=== PATIENT | female | born 1950 | race Caucasian/White ===

== ENCOUNTER 2019-04-21 17:09 | Emergency (ER) | payer OTHER ==
[2019-04-21 17:24] VITALS: BP 158/106; PULSE 98; TEMP 98; BMI 24.7
--- NOTE | 2019-04-21 18:13 | PDOC ---
History of Present Illness - General Chief Complaint: Substance Abuse Stated Complaint: DETOX Time Seen by Provider: 04/21/19 18:03 - History of Present Illness Initial Comments: 04/21/19 18:09 69 years old past medical history significant for alcohol abuse daily alcohol use last drink greater than 24 hours ago high cholesterol anxiety depression presents to the emergency department seeking detox she was supposed to go to [facility] but came to our facility instead she is complaining of anxiety and symptoms consistent with mild alcohol withdrawal she denies fever chills chest pain shortness of breath Past History - Past Medical History Allergies/Adverse Reactions: Allergies Allergy/AdvReac Type Severity Reaction Status Date / Time No Known Allergies Allergy Verified 04/21/19 17:25 COPD: No Psychiatric Problems: Yes (DEPRESSION) - Psycho Social/Smoking Cessation Hx Smoking History: Never smoked Hx Alcohol Use: Yes Drug/Substance Use Hx: No Review of Systems - Review of Systems Comments:: 04/21/19 18:09 ROS: A complete review of 10 out of 10 review of systems is taken and is negative apart from what is previously mentioned below and in the HPI. *Physical Exam - Vital Signs Last Vital Signs Temp Pulse Resp BP Pulse Ox 98 F 98 H 18 158/106 H 99 04/21/19 17:21 04/21/19 17:21 04/21/19 17:21 04/21/19 17:21 04/21/19 17:21 - Physical Exam 04/21/19 18:09 Vitals: Triage Vital signs reviewed General Appearance: No acute distress, well nourished well developed, Head: Atraumatic, Fasciculations to tongue throat: Posterior oropharynx without erythema, mucous membranes moist, Neck: Supple; no Nucal rigidity Chest Wall: Nontender Cardiac: Regular rate and rhythym, no murmurs, no rubs, no gallops, Lungs: Clear to auscultation bilateral, good air movement bilaterally, Abdomen: Soft, non distended, normal bowel sounds, non tender to palpation Extremities: Full range of motion to all extremities, no cyanosis, clubbing, or edema Skin: Warm and dry, no rashes or lesions, no rash, no petechiae Neuro bilateral hand tremor with extension strength intact to all extremities, sensation intact to all extremities, gait normal Psych: Normal mood, normal affect Medical Decision Making - Medical Decision Making 12/30/19 18:10 History and examination consistent with moderate alcohol withdrawal CIWA score 24 Case discussed with [facility] there is a female bed available. Her will drive her down to [facility] patient provided with directions As, the need for follow-up and strict return instructions discussed with patient. Discharge - Discharge Information Problems reviewed: Yes Clinical Impression/Diagnosis: Alcohol withdrawal Qualifiers: Complication of substance-induced condition: uncomplicated Qualified Code(s): F10.230 - Alcohol dependence with withdrawal, uncomplicated Condition: Fair - Admission No - Follow up/Referral Referrals: Maulik Echeverria [Primary Care Provider] - - Patient Discharge Instructions Patient Printed Discharge Instructions: DI for Drug or Alcohol Withdrawal, Drug and Alcohol Withdrawal Additional Instructions: Proceed to to [place], [place] for detox at [facility]. Follow-up with your primary care provider return to ED for any concerns. [facility] [address] [place] [address] [address] [facility] [address] [facility] [address] [facility] 1.[address] at [address] [facility] [address] onto [facility] [address] left Destination will be on the right 315 ft [facility] at [address] [address] - Post Discharge Activity
== END 2019-04-21 18:21 | disposition home or self-care (01) ==
LOC: JER 17:09
DX: F10.230 Alcohol dependence with withdrawal, uncomplicated (principal); F41.8 Other specified anxiety disorders; F32.9 Major depressive disorder, single episode, unspecified; E78.00 Pure hypercholesterolemia, unspecified
CPT/HCPCS: 99281-25

== ENCOUNTER 2019-04-21 19:53 | Inpatient (IN) | payer OTHER ==
[2019-04-21 21:11] VITALS: BMI 26.2
--- NOTE | 2019-04-21 22:59 | HP ---
CIWA Score Nausea/Vomitin Muscle Tremors: 3 Anxiety: 4-Mod. Anxious/Guarded Agitation: 4-Moderately Restless Paroxysmal Sweats: 1-Minimal Palms Moist Orientation: 0-Oriented Tacttile Disturbances: 0-None Auditory Disturbances: 0-None Visual Disturbances: 0-None Headache: 3-Moderate CIWA-Ar Total Score: 17 - Admission Criteria OASAS Guidelines: Admission for Medically Managed Detox: Requires at least one of the followin. CIWA greater than 12 2. Seizures within the past 24 hours 3. Delirium tremens within the past 24 hours 4. Hallucinations within the past 24 hours 5. Acute intervention needed for co occurring medical disorder 6. Acute intervention needed for co occurring psychiatric disorder 7. Severe withdrawal that cannot be handled at a lower level of care (continued vomiting, continued diarrhea, abnormal vital signs) requiring intravenous medication and/or fluids 8. Admitting History and Physical - Smoking History Smoking history: Never smoked - Alcohol/Substance Use Hx Alcohol Use: Yes Admission ROS [facility] Chief Complaint: Alcohol withdrawal symptoms Allergies/Adverse Reactions: Allergies Allergy/AdvReac Type Severity Reaction Status Date / Time No Known Allergies Allergy Verified 04/21/19 17:25 History of Present Illness: 69 years old female with a long history of alcohol dependence is seeking admission to detox. Patient reports that this is her first detoxification and first admission to [facility]. She has history of migraine headaches and diverticulitis and psychiatric history of anxiety and depression. She denies suicide attempt and suicidal ideation at this time. She is employed and lives with her and disabled adult son. She denies seizures and reports blackouts, last two months ago. Exam Limitations: No Limitations - Ebola screening Have you traveled outside of the country in the last 21 days: No (N) Have you had contact with anyone from an Ebola affected area: No Do you have a fever: No - Review of Systems Constitutional: Chills, Malaise, Changes in sleep EENT: reports: Nose Congestion Respiratory: reports: No Symptoms reported Cardiac: reports: No Symptoms Reported GI: reports: Nausea, Poor Appetite, Abdominal cramping : reports: No Symptoms Reported Musculoskeletal: reports: Back Pain Integumentary: reports: Dryness, Flushing Neuro: reports: Headache, Tremors Endocrine: reports: No Symptoms Reported Hematology: reports: No Symptoms Reported Psychiatric: reports: Mood/Affect Appropiate, Orientated x3, Anxious, Depressed Other Systems: Reviewed and Negative Patient History - Patient Medical History Hx Anemia: No Hx Asthma: No Hx Chronic Obstructive Pulmonary Disease (COPD): No Hx Cancer: No Hx Cardiac Disorders: No Hx Congestive Heart Failure: No Hx Hypertension: No Hx Hypercholesterolemia: No HX Cerebrovascular Accident: No Hx Seizures: No Hx Diabetes: No Hx Gastrointestinal Disorders: No Hx Liver Disease: No Hx Genitourinary Disorders: No Hx Sexually Transmitted Disorders: No Hx Renal Disease (ESRD): No Hx Thyroid Disease: No Hx Human Immunodeficiency Virus (HIV): No (Negative 1976) Hx Hepatitis C: No Hx Depression: Yes (Gabapentin, duloxetine) Hx Suicide Attempt: No (Denies suicidal ideation at this time) Hx Bipolar Disorder: No Hx Schizophrenia: No - Patient Surgical History Past Surgical History: Yes Hx Section: Yes (1976) Other Surgical History: HERNIA SURGERY 1994 - PPD History Previous Implant?: No Implanted On Prior R Admission?: No PPD to be Administered?: Yes - Reproductive History Patient is a Female of Child Bearing Age (11 -55 yrs old): Yes LMP comment: POST MENOPAUSAL - Smoking Cessation Smoking history: Never smoked Have you smoked in the past 12 months: No Hx Chewing Tobacco Use: No Initiated information on smoking cessation: No - Substance & Tx. History Hx Alcohol Use: Yes Hx Substance Use: Yes Substance Use Type: Alcohol, Marijuana Hx Substance Use Treatment: No - Substances abused Alcohol Substance route: Oral Frequency: Daily Amount used: 5 to 6 glasses of wine Age of first use: 32 Date of last use: 04/20/19 Admission Physical Exam BHS - Vital Signs Vital Signs: Vital Signs - 24 hr 04/21/19 04/21/19 20:58 22:34 Temperature 97.2 F L 97.2 F L Pulse Rate 90 90 Respiratory 16 16 Rate Blood Pressure 165/99 165/99 - Physical General Appearance: Yes: Moderate Distress, Tremorous, Sweating, Anxious HEENTM: Yes: Within Normal Limits Respiratory: Yes: Lungs Clear, Normal Breath Sounds, No Respiratory Distress Neck: Yes: Within Normal Limits Breast: Yes: Breast Exam Deferred Cardiology: Yes: Tachycardia Abdominal: Yes: Normal Bowel Sounds, Soft Genitourinary: Yes: Within Normal Limits Back: Yes: Normal Inspection Musculoskeletal: Yes: Back pain Extremities: Yes: Tremors Neurological: Yes: Within Normal Limits, Alert, Normal Mood/Affect Integumentary: Yes: Warm Lymphatic: Yes: Within Normal Limits - Diagnostic (1) Alcohol dependence with withdrawal, uncomplicated Current Visit: Yes Status: Acute (2) Anxiety Current Visit: Yes Status: Chronic (3) Depression Current Visit: Yes Status: Chronic Qualifiers: Depression Type: unspecified Qualified Code(s): F32.9 - Major depressive disorder, single episode, unspecified Cleared for Admission BHS - Detox or Rehab [facility] Level of Care: Medically Managed Detox Regimen/Protocol: Librium Claeared for Rehab Admission: No Breathalyzer - Breathalyzer Breathalyzer: 0 Urine Drug Screen - Test Device Lot number: [id number] Expiration date: 11/20/20 - Control Is test valid?: Yes - Results Drug screen NEGATIVE: No Urine drug screen results: THC-Marijuana Inpatient Rehab Admission - Rehab Decision to Admit Inpatient rehab admission?: No
[2019-04-21] MEDS ORDERED: MAGNESIUM HYDROX 2400MG/30ML ORAL SUSPENSION 30 ML CUP PO PRN (23:18)
[2019-04-21] MEDS ORDERED: MAGNESIUM CITRATE 300 ML BOTTLE PO PRN (23:18)
[2019-04-21] MEDS ORDERED: BISMUTH SUBSALICYLATE 524 MG/30 ML UD PO PRN (23:18)
[2019-04-21] MEDS ORDERED: MAG HYDROX/AL HYDROX/SIMETH 30 ML UNIT-DOSE CUP PO PRN (23:18)
[2019-04-21] MEDS ORDERED: MELATONIN 5 MG TABLETS PO PRN (23:18)
[2019-04-21] MEDS ORDERED: hydrOXYzine PAMOATE 25 MG CAPSULE (FP) PO PRN (23:18)
[2019-04-21] MEDS ORDERED: IBUPROFEN 400 MG TABLET (FP) PO PRN (23:18)
[2019-04-21] MEDS ORDERED: ACETAMINOPHEN 325 MG TABLET (FP) PO PRN ×2 (23:18)
[2019-04-21] MEDS ORDERED: MENTHOL/PHENOL 1 EACH UD MM PRN (23:18)
[2019-04-21] MEDS ORDERED: chlordiazePOXIDE HCL 25 MG CAPSULE PO PRN (23:22)
[2019-04-22] MEDS: chlordiazePOXIDE HCL 25 MG CAPSULE PO SCH ×5 (00:56→22:06)
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
[2019-04-22] MEDS ORDERED: GABAPENTIN 300 MG CAPSULE (FP) PO PRN (08:42)
--- NOTE | 2019-04-22 10:14 | EKG ---
Test Reason : Blood Pressure : / mmHG Vent. Rate : 085 BPM Atrial Rate : 085 BPM P-R Int : 142 ms QRS Dur : 094 ms QT Int : 386 ms P-R-T Axes : 031 -08 052 degrees QTc Int : 459 ms NORMAL SINUS RHYTHM POSSIBLE LEFT ATRIAL ENLARGEMENT NONSPECIFIC T WAVE ABNORMALITY ABNORMAL ECG NO PREVIOUS ECGS AVAILABLE Confirmed by MD Wang, Girma ([id number]) on 04/22/2019 10:13:43 AM Referred By: CAROL Confirmed By:Girma Piña MD
[2019-04-22] MEDS: PRENATAL VITAMINS W/ FOLIC ACID TABLET (FP) PO SCH (10:17)
[2019-04-22] MEDS: DULoxetine HCL 60 MG CAPSULE.DR PO SCH (10:19)
--- NOTE | 2019-04-22 10:19 | PN ---
S CIWA - CIWA Score Nausea/Vomitin-No Nausea/No Vomiting Muscle Tremors: 3 Anxiety: 2 Agitation: 3 Paroxysmal Sweats: 2 Orientation: 0-Oriented Tacttile Disturbances: 0-None Auditory Disturbances: 0-None Visual Disturbances: 0-None Headache: 0-None Present CIWA-Ar Total Score: 10 S Progress Note (SOAP) Subjective: hot/cold sweats chills insomnia tired Objective: 04/22/19 10:18 Vital Signs Temperature 97.9 F 04/22/19 09:22 Pulse Rate 100 H 04/22/19 09:22 Respiratory Rate 18 04/22/19 09:22 Blood Pressure 149/86 04/22/19 09:22 O2 Sat by Pulse Oximetry (%) labs pending aaox3 ambulating no acute distress Assessment: 04/22/19 10:18 withdrawals Plan: continue detox increase fluids
[2019-04-22 12:13] LABS: HEMOGLOBIN 14.9 GM/dL (10.7-15.3); MCH 30.2 pg (25.7-33.7); MCHC 33.2 g/dl (32.0-36.0); MEAN PLT VOLUME 8.5 fl (7.5-11.1); PLATELET COUNT 311 K/MM3 (134-434); RBC 4.95 M/mm3 (3.60-5.2); RDW 14.4 % (11.6-15.6); WHITE BLOOD COUNT 4.7 K/mm3 (4.0-10.0)
[2019-04-22 12:19] LABS: ALBUMIN 3.7 g/dl (3.4-5.0); BILIRUBIN,TOTAL 1.5 mg/dL (0.2-1); BLOOD UREA NITROGEN 14.4 mg/dL (7-18); CALCIUM 9.3 mg/dL (8.5-10.1); CREATININE 0.7 mg/dL (0.55-1.3); POTASSIUM 4.1 mmol/L (3.5-5.1); TOT PROT 6.4 g/dl (6.4-8.2)
[2019-04-22] MEDS: THIAMINE HCL 100 MG TABLET (FP) PO SCH (21:40)
[2019-04-22] MEDS: QUEtiapine FUMARATE 50 MG TABLET PO SCH (21:40)
[2019-04-23] MEDS: chlordiazePOXIDE HCL 25 MG CAPSULE PO SCH ×4 (05:55→22:13)
--- NOTE | 2019-04-23 09:50 | PN ---
[facility] CIWA - CIWA Score Nausea/Vomitin-Mild Nausea/No Vomiting Muscle Tremors: 3 Anxiety: 3 Agitation: 0-Normal Activity Paroxysmal Sweats: 3 Orientation: 0-Oriented Tacttile Disturbances: 3-Moderate Itch/Numb/Burn Auditory Disturbances: 0-None Visual Disturbances: 0-None Headache: 0-None Present CIWA-Ar Total Score: 13 S Progress Note (SOAP) Subjective: c/o of hot flashes, chills, sweats, interrupted sleep, pruritus Objective: 04/23/19 09:49 Vital Signs Temperature 97.5 F L 04/23/19 07:36 Pulse Rate 80 04/23/19 07:36 Respiratory Rate 18 04/23/19 07:36 Blood Pressure 93/59 L 04/23/19 07:36 O2 Sat by Pulse Oximetry (%) Laboratory Last Values WBC 4.7 K/mm3 (4.0-10.0) 04/22/19 07:00 RBC 4.95 M/mm3 (3.60-5.2) 04/22/19 07:00 Hgb 14.9 GM/dL (10.7-15.3) 04/22/19 07:00 Hct 45.0 % (32.4-45.2) 04/22/19 07:00 MCV 91.0 fl (80-96) 04/22/19 07:00 MCH 30.2 pg (25.7-33.7) 04/22/19 07:00 MCHC 33.2 g/dl (32.0-36.0) 04/22/19 07:00 RDW 14.4 % (11.6-15.6) 04/22/19 07:00 Plt Count 311 K/MM3 (134-434) 04/22/19 07:00 MPV 8.5 fl (7.5-11.1) 04/22/19 07:00 Sodium 138 mmol/L (136-145) 04/22/19 07:00 Potassium 4.1 mmol/L (3.5-5.1) 04/22/19 07:00 Chloride 106 mmol/L (98-107) 04/22/19 07:00 Carbon Dioxide 25 mmol/L (21-32) 04/22/19 07:00 Anion Gap 8 MMOL/L (8-16) 04/22/19 07:00 BUN 14.4 mg/dL (7-18) 04/22/19 07:00 Creatinine 0.7 mg/dL (0.55-1.3) 04/22/19 07:00 Est GFR (CKD-EPI)AfAm 103.91 04/22/19 07:00 Est GFR (CKD-EPI)NonAf 89.65 04/22/19 07:00 Random Glucose 102 mg/dL (74-106) 04/22/19 07:00 Calcium 9.3 mg/dL (8.5-10.1) 04/22/19 07:00 Total Bilirubin 1.5 mg/dL (0.2-1) H 04/22/19 07:00 AST 20 U/L (15-37) 04/22/19 07:00 ALT 25 U/L (13-61) 04/22/19 07:00 Alkaline Phosphatase 130 U/L (45-117) H 04/22/19 07:00 Total Protein 6.4 g/dl (6.4-8.2) 04/22/19 07:00 Albumin 3.7 g/dl (3.4-5.0) 04/22/19 07:00 RPR Titer Nonreactive (NONREACTIVE) 04/22/19 07:00 labs reviewed Assessment: 04/23/19 09:49 Patient Aox3 no acute distress EENT WNL Full ROM no gait disturbance ambulating in the unit withdrawal sx Plan: increase PO fluids continue detox continue to monitor
[2019-04-23] MEDS: PRENATAL VITAMINS W/ FOLIC ACID TABLET (FP) PO SCH (10:19)
[2019-04-23] MEDS: DULoxetine HCL 60 MG CAPSULE.DR PO SCH (10:19)
[2019-04-23] MEDS: THIAMINE HCL 100 MG TABLET (FP) PO SCH (22:13)
[2019-04-23] MEDS: QUEtiapine FUMARATE 50 MG TABLET PO SCH (22:13)
[2019-04-24] MEDS ORDERED: chlordiazePOXIDE HCL 10 MG CAPSULE PO PRN
[2019-04-24] MEDS: METHOCARBAMOL 500 MG TABLET PO PRN (01:53)
[2019-04-24] MEDS: chlordiazePOXIDE HCL 10 MG CAPSULE PO SCH ×4 (05:36→22:01)
[2019-04-24] MEDS: PRENATAL VITAMINS W/ FOLIC ACID TABLET (FP) PO SCH (10:14)
[2019-04-24] MEDS: DULoxetine HCL 60 MG CAPSULE.DR PO SCH (10:14)
--- NOTE | 2019-04-24 11:38 | PN ---
S CIWA - CIWA Score Nausea/Vomitin-No Nausea/No Vomiting Muscle Tremors: None Anxiety: 3 Agitation: 0-Normal Activity Paroxysmal Sweats: 3 Orientation: 0-Oriented Tacttile Disturbances: 0-None Auditory Disturbances: 0-None Visual Disturbances: 0-None Headache: 2-Mild CIWA-Ar Total Score: 8 BHS Progress Note (SOAP) Subjective: c/o sweats, anxiety, and headache. Objective: 04/24/19 11:37 Vital Signs 04/24/19 04/24/19 07:34 09:40 Temperature 96.6 F L 97.2 F L Pulse Rate 79 88 Respiratory 18 17 Rate Blood Pressure 129/84 Laboratory Last Values WBC 4.7 K/mm3 (4.0-10.0) 04/22/19 07:00 RBC 4.95 M/mm3 (3.60-5.2) 04/22/19 07:00 Hgb 14.9 GM/dL (10.7-15.3) 04/22/19 07:00 Hct 45.0 % (32.4-45.2) 04/22/19 07:00 MCV 91.0 fl (80-96) 04/22/19 07:00 MCH 30.2 pg (25.7-33.7) 04/22/19 07:00 MCHC 33.2 g/dl (32.0-36.0) 04/22/19 07:00 RDW 14.4 % (11.6-15.6) 04/22/19 07:00 Plt Count 311 K/MM3 (134-434) 04/22/19 07:00 MPV 8.5 fl (7.5-11.1) 04/22/19 07:00 Sodium 138 mmol/L (136-145) 04/22/19 07:00 Potassium 4.1 mmol/L (3.5-5.1) 04/22/19 07:00 Chloride 106 mmol/L (98-107) 04/22/19 07:00 Carbon Dioxide 25 mmol/L (21-32) 04/22/19 07:00 Anion Gap 8 MMOL/L (8-16) 04/22/19 07:00 BUN 14.4 mg/dL (7-18) 04/22/19 07:00 Creatinine 0.7 mg/dL (0.55-1.3) 04/22/19 07:00 Est GFR (CKD-EPI)AfAm 103.91 04/22/19 07:00 Est GFR (CKD-EPI)NonAf 89.65 04/22/19 07:00 Random Glucose 102 mg/dL (74-106) 04/22/19 07:00 Calcium 9.3 mg/dL (8.5-10.1) 04/22/19 07:00 Total Bilirubin 1.5 mg/dL (0.2-1) H 04/22/19 07:00 AST 20 U/L (15-37) 04/22/19 07:00 ALT 25 U/L (13-61) 04/22/19 07:00 Alkaline Phosphatase 130 U/L (45-117) H 04/22/19 07:00 Total Protein 6.4 g/dl (6.4-8.2) 04/22/19 07:00 Albumin 3.7 g/dl (3.4-5.0) 04/22/19 07:00 RPR Titer Nonreactive (NONREACTIVE) 04/22/19 07:00 Labs noted. Assessment: 04/24/19 11:37 AOX3, in no acute respiratory distress. Full ROM, ambulating in the unit. Withdrawal symptoms. Plan: continue detox.
[2019-04-24] MEDS: THIAMINE HCL 100 MG TABLET (FP) PO SCH (22:01)
[2019-04-24] MEDS: QUEtiapine FUMARATE 50 MG TABLET PO SCH (22:01)
[2019-04-25] MEDS: chlordiazePOXIDE HCL 10 MG CAPSULE PO SCH ×2 (05:48→17:17)
[2019-04-25] MEDS: PRENATAL VITAMINS W/ FOLIC ACID TABLET (FP) PO SCH (10:15)
[2019-04-25] MEDS: DULoxetine HCL 60 MG CAPSULE.DR PO SCH (10:15)
--- NOTE | 2019-04-25 11:39 | PN ---
S CIWA - CIWA Score Nausea/Vomitin-Mild Nausea/No Vomiting Muscle Tremors: 1-None Visible, but [place] Anxiety: 1-Mildly Anxious Paroxysmal Sweats: No Perspiration Orientation: 0-Oriented Tacttile Disturbances: 0-None Auditory Disturbances: 0-None Visual Disturbances: 0-None Headache: 0-None Present BHS Progress Note (SOAP) Subjective: pt states going to rehab tomorrow. O: Vital Signs - 24 hr 04/24/19 04/24/19 04/24/19 13:00 17:15 21:32 Temperature 97 F L 98.1 F 97.7 F Pulse Rate 85 87 84 Respiratory 18 17 18 Rate Blood Pressure 108/76 120/77 120/75 04/25/19 04/25/19 04/25/19 00:30 03:30 06:00 Temperature 97.5 F L Pulse Rate 78 Respiratory 16 16 16 Rate Blood Pressure 105/59 L 04/25/19 09:45 Temperature 98.1 F Pulse Rate 90 Respiratory 18 Rate Blood Pressure 117/63 Laboratory Tests 04/22/19 04/22/19 04/22/19 07:00 07:00 07:00 WBC 4.7 RBC 4.95 Hgb 14.9 Hct 45.0 MCV 91.0 MCH 30.2 MCHC 33.2 RDW 14.4 Plt Count 311 MPV 8.5 Sodium 138 Potassium 4.1 Chloride 106 Carbon Dioxide 25 Anion Gap 8 BUN 14.4 Creatinine 0.7 Est GFR (CKD-EPI)AfAm 103.91 Est GFR (CKD-EPI)NonAf 89.65 Random Glucose 102 Calcium 9.3 Total Bilirubin 1.5 H AST 20 ALT 25 Alkaline Phosphatase 130 H Total Protein 6.4 Albumin 3.7 RPR Titer Nonreactive a/p: AUD- continue detox, d/w to rehab tomorrow- order written.
[2019-04-25] MEDS: QUEtiapine FUMARATE 50 MG TABLET PO SCH (22:10)
[2019-04-25] MEDS: THIAMINE HCL 100 MG TABLET (FP) PO SCH (22:10)
[2019-04-26] MEDS ORDERED: chlordiazePOXIDE HCL 10 MG CAPSULE PO ONE (05:00)
[2019-04-26] MEDS: DULoxetine HCL 60 MG CAPSULE.DR PO SCH (10:41)
[2019-04-26] MEDS: PRENATAL VITAMINS W/ FOLIC ACID TABLET (FP) PO SCH (10:41)
--- NOTE | 2019-04-26 14:51 | PN ---
[facility] CIWA - CIWA Score Nausea/Vomitin-No Nausea/No Vomiting Muscle Tremors: 1-None Visible, but [place] Anxiety: 1-Mildly Anxious Agitation: 1-Slight > Activity Paroxysmal Sweats: 1-Minimal Palms Moist Orientation: 0-Oriented Tacttile Disturbances: 0-None Auditory Disturbances: 0-None Visual Disturbances: 0-None Headache: 0-None Present CIWA-Ar Total Score: 4 BHS Progress Note (SOAP) Subjective: pt completed detox protocol. Anticipate discharge to rehab. at [facility] is closed on weekends. O: Vital Signs - 24 hr 04/25/19 04/25/19 04/26/19 17:38 21:55 00:30 Temperature 96.3 F L 97.7 F Pulse Rate 91 H 86 Respiratory 18 18 18 Rate Blood Pressure 140/90 145/84 04/26/19 04/26/19 04/26/19 03:51 08:42 10:05 Temperature 97.9 F 97.7 F Pulse Rate 72 84 Respiratory 16 16 16 Rate Blood Pressure 103/64 128/84 Laboratory Tests 04/22/19 04/22/19 04/22/19 07:00 07:00 07:00 WBC 4.7 RBC 4.95 Hgb 14.9 Hct 45.0 MCV 91.0 MCH 30.2 MCHC 33.2 RDW 14.4 Plt Count 311 MPV 8.5 Sodium 138 Potassium 4.1 Chloride 106 Carbon Dioxide 25 Anion Gap 8 BUN 14.4 Creatinine 0.7 Est GFR (CKD-EPI)AfAm 103.91 Est GFR (CKD-EPI)NonAf 89.65 POC Glucometer Random Glucose 102 Calcium 9.3 Total Bilirubin 1.5 H AST 20 ALT 25 Alkaline Phosphatase 130 H Total Protein 6.4 Albumin 3.7 RPR Titer Nonreactive 04/26/19 05:38 WBC RBC Hgb Hct MCV MCH MCHC RDW Plt Count MPV Sodium Potassium Chloride Carbon Dioxide Anion Gap BUN Creatinine Est GFR (CKD-EPI)AfAm Est GFR (CKD-EPI)NonAf POC Glucometer 105 Random Glucose Calcium Total Bilirubin AST ALT Alkaline Phosphatase Total Protein Albumin RPR Titer a/p AUD- pt to stay here until transfer to [facility]. d/w counselors Pt has multiple medical problems: She has history of migraine headaches and diverticulitis and psychiatric history of anxiety and depression. and it would be safer for her to be discharged directly to rehab
[2019-04-26] MEDS: METHOCARBAMOL 500 MG TABLET PO PRN (19:03)
[2019-04-26] MEDS: THIAMINE HCL 100 MG TABLET (FP) PO SCH (22:21)
[2019-04-26] MEDS: QUEtiapine FUMARATE 50 MG TABLET PO SCH (22:21)
[2019-04-27] MEDS: PRENATAL VITAMINS W/ FOLIC ACID TABLET (FP) PO SCH (10:36)
[2019-04-27] MEDS: DULoxetine HCL 60 MG CAPSULE.DR PO SCH (10:36)
--- NOTE | 2019-04-27 18:22 | PN ---
S CIWA - CIWA Score Nausea/Vomitin-No Nausea/No Vomiting Muscle Tremors: None Anxiety: 2 Agitation: 2 Paroxysmal Sweats: No Perspiration Orientation: 0-Oriented Tacttile Disturbances: 0-None Auditory Disturbances: 0-None Visual Disturbances: 0-None Headache: 0-None Present CIWA-Ar Total Score: 4 BHS Progress Note (SOAP) Subjective: Sweating, chills, nausea, headache, interrupted sleep. Objective: 04/27/19 18:21 Last Vital Signs Temp Pulse Resp BP Pulse Ox 98.1 F 87 17 128/84 04/27/19 17:24 04/27/19 17:24 04/27/19 17:24 04/27/19 17:24 Laboratory Tests 04/22/19 04/22/19 04/22/19 07:00 07:00 07:00 WBC 4.7 RBC 4.95 Hgb 14.9 Hct 45.0 MCV 91.0 MCH 30.2 MCHC 33.2 RDW 14.4 Plt Count 311 MPV 8.5 Sodium 138 Potassium 4.1 Chloride 106 Carbon Dioxide 25 Anion Gap 8 BUN 14.4 Creatinine 0.7 Est GFR (CKD-EPI)AfAm 103.91 Est GFR (CKD-EPI)NonAf 89.65 POC Glucometer Random Glucose 102 Calcium 9.3 Total Bilirubin 1.5 H AST 20 ALT 25 Alkaline Phosphatase 130 H Total Protein 6.4 Albumin 3.7 RPR Titer Nonreactive 04/26/19 05:38 WBC RBC Hgb Hct MCV MCH MCHC RDW Plt Count MPV Sodium Potassium Chloride Carbon Dioxide Anion Gap BUN Creatinine Est GFR (CKD-EPI)AfAm Est GFR (CKD-EPI)NonAf POC Glucometer 105 Random Glucose Calcium Total Bilirubin AST ALT Alkaline Phosphatase Total Protein Albumin RPR Titer Labs reviewed Assessment: 04/27/19 18:21 Withdrawal sxs Plan: Continue detox Encouraged PO water intake Patient scheduled for discharge to rehab tomorrow
[2019-04-27] MEDS: METHOCARBAMOL 500 MG TABLET PO PRN (22:12)
[2019-04-27] MEDS: QUEtiapine FUMARATE 50 MG TABLET PO SCH (22:12)
[2019-04-27] MEDS: THIAMINE HCL 100 MG TABLET (FP) PO SCH (22:12)
--- NOTE | 2019-04-28 08:56 | DS ---
[facility] Detox Discharge Summary Admission Date: 04/21/19 Discharge Date: 04/28/19 - History Present History: Alcohol Dependence - Physical Exam Results Vital Signs: Vital Signs Temperature 97.5 F L 04/28/19 07:19 Pulse Rate 79 04/28/19 07:19 Respiratory Rate 18 04/28/19 07:19 Blood Pressure 98/58 L 04/28/19 07:19 O2 Sat by Pulse Oximetry (%) Pertinent Admission Physical Exam Findings: Vital Signs Temperature 97.5 F L 04/28/19 07:19 Pulse Rate 79 04/28/19 07:19 Respiratory Rate 18 04/28/19 07:19 Blood Pressure 98/58 L 04/28/19 07:19 O2 Sat by Pulse Oximetry (%) Laboratory Tests 04/22/19 04/22/19 04/22/19 07:00 07:00 07:00 WBC 4.7 RBC 4.95 Hgb 14.9 Hct 45.0 MCV 91.0 MCH 30.2 MCHC 33.2 RDW 14.4 Plt Count 311 MPV 8.5 Sodium 138 Potassium 4.1 Chloride 106 Carbon Dioxide 25 Anion Gap 8 BUN 14.4 Creatinine 0.7 Est GFR (CKD-EPI)AfAm 103.91 Est GFR (CKD-EPI)NonAf 89.65 POC Glucometer Random Glucose 102 Calcium 9.3 Total Bilirubin 1.5 H AST 20 ALT 25 Alkaline Phosphatase 130 H Total Protein 6.4 Albumin 3.7 RPR Titer Nonreactive 04/26/19 05:38 WBC RBC Hgb Hct MCV MCH MCHC RDW Plt Count MPV Sodium Potassium Chloride Carbon Dioxide Anion Gap BUN Creatinine Est GFR (CKD-EPI)AfAm Est GFR (CKD-EPI)NonAf POC Glucometer 105 Random Glucose Calcium Total Bilirubin AST ALT Alkaline Phosphatase Total Protein Albumin RPR Titer aaox3 ambulating no acute distress - Treatment Hospital Course: Detox Protocol Followed, Detoxed Safely, Responded well, Discharged Condition Good, Rehab Referral Accepted Patient has Accepted a Rehab Referral to: referred to [facility] inpatient rehab - Medication Discharge Medications: Ambulatory Orders Duloxetine HCl 120 mg PO DAILY 04/21/19 Gabapentin 300 mg PO BID PRN 04/21/19 Quetiapine Fumarate [Seroquel -] 50 mg PO HS 04/21/19 Zolpidem Tartrate [Ambien] 10 mg PO HS 04/21/19 - Diagnosis (1) Alcohol dependence with withdrawal, uncomplicated Current Visit: Yes Status: Chronic (2) Anxiety Current Visit: Yes Status: Chronic (3) Depression Current Visit: Yes Status: Chronic Qualifiers: Depression Type: unspecified Qualified Code(s): F32.9 - Major depressive disorder, single episode, unspecified (4) Diverticulitis Current Visit: Yes Status: Chronic (5) MDD (major depressive disorder) Current Visit: Yes Status: Chronic (6) PTSD (post-traumatic stress disorder) Current Visit: Yes Status: Ruled-out - AMA Did Patient Leave Against Medical Advice: No
[2019-04-28 09:33] VITALS: BP 118/90; PULSE 87; TEMP 97.7
[2019-04-28] MEDS: PRENATAL VITAMINS W/ FOLIC ACID TABLET (FP) PO SCH (10:11)
[2019-04-28] MEDS: DULoxetine HCL 60 MG CAPSULE.DR PO SCH (10:11)
== END 2019-04-28 14:24 | disposition other institution (70) | DRG 897 ==
LOC: YASAS 19:53 → Y6N 23:42
PROVIDERS: ADMIT Allergy & Immunology; ATTEND Allergy & Immunology
PROC: HZ2ZZZZ Detoxification Services for Substance Abuse Treatment (ICD-10-PCS; principal; 2019-04-21)
DX: F10.230 Alcohol dependence with withdrawal, uncomplicated (principal); F10.280 Alcohol dependence with alcohol-induced anxiety disorder; F10.282 Alcohol dependence with alcohol-induced sleep disorder; F41.9 Anxiety disorder, unspecified; F32.9 Major depressive disorder, single episode, unspecified; F43.10 Post-traumatic stress disorder, unspecified; R00.0 Tachycardia, unspecified
CPT/HCPCS: 36415; 80053; 82962; 85027; 86593; 93005; 93010